=== PATIENT | female | born 1955 | race American Indian/Alaskan Native ===

== ENCOUNTER 2017-04-30 23:53 | Emergency (ER) | payer SELFPAY ==
[2017-05-01] MEDS ORDERED: TYLENOL PO ONE (01:00)
[2017-05-01] MEDS ORDERED: CATAPRES PO ONE (01:01)
[2017-05-01] MEDS ORDERED: TYLENOL ONE (01:01)
[2017-05-01] MEDS ORDERED: MOTRIN ONE (01:01)
[2017-05-01] MEDS ORDERED: CATAPRES ONE (01:01)
[2017-05-01] MEDS ORDERED: MOTRIN PO ONE (01:01)
[2017-05-01 04:43] VITALS: BP 118/76
[2017-05-01] MEDS ORDERED: BACTRIM DS PO ONE (06:32)
--- NOTE | 2017-05-01 06:38 | Emergency Department Report ---
HPI - General Chief Complaint: Sore Throat Time Seen by Provider: 05/01/17 06:02 - HPI HPI: This is a 61-year-old female presents to the emergency department with complaint of a sore throat that started last week, then went away, and he came back over the past 2 days. She admits to some chills and was found to have a low-grade fever here today. She also presented with elevated blood pressure but admits that she has been out of her lisinopril and hydrochlorothiazide for the past month or so as she does not have a primary care doctor, insurance. She tried some Goody's powder for her symptoms without any relief. She has a past medical history of asthma, hypertension. She denies current tobacco abuse. No recent travel or sick contacts at home. She is able to swallow liquids and solids but has some pain with doing so. ED Past Medical Hx - Past Medical History Previous Medical History?: Yes Hx Hypertension: Yes Hx Asthma: Yes - Surgical History Additional Surgical History: tubal ligation - Social History Smoking Status: Current Every Day Smoker - Medications Home Medications: Home Medications Medication Instructions Recorded Confirmed Last Taken Type Lisinopril/Hydrochlorothiazide 1 tab PO QDAY #30 tab 05/01/17 Unknown Rx [Zestoretic 20-25 mg] Sulfamethoxazole/Trimethoprim 1 each PO BID #14 tablet 05/01/17 Unknown Rx [Bactrim DS TAB] ED Review of Systems ROS: Stated complaint: SORE THROAT Other details as noted in HPI Comment: All other systems reviewed and negative Constitutional: chills, fever Eyes: denies: eye pain, eye discharge, vision change ENT: throat pain. denies: ear pain Respiratory: denies: cough, shortness of breath, wheezing Cardiovascular: denies: chest pain, palpitations Gastrointestinal: denies: abdominal pain, nausea, diarrhea Genitourinary: denies: urgency, dysuria, discharge Musculoskeletal: denies: back pain, joint swelling, arthralgia Skin: denies: rash, lesions Neurological: denies: headache, weakness, paresthesias Physical Exam - Physical Exam Vital Signs: Vital Signs 05/01/17 05/01/17 05/01/17 00:17 00:43 01:03 Temperature 100.8 F H 100.8 F H Pulse Rate 88 76 Respiratory 18 20 20 Rate Blood Pressure 180/114 180/114 Blood Pressure [Left] O2 Sat by Pulse 95 98 Oximetry 05/01/17 05/01/17 05/01/17 01:04 02:37 04:42 Temperature 99.2 F 98 F Pulse Rate 76 76 98 H Respiratory 20 20 18 Rate Blood Pressure 180/114 Blood Pressure 128/88 118/76 [Left] O2 Sat by Pulse 98 96 Oximetry Physical Exam: GENERAL: The patient is well-developed well-nourished. HENT: Normocephalic. Atraumatic. Patient has moist mucous membranes. No drooling or trismus. Patient has dentures in place. There is some elongation and inflammation of the uvula and there is some mild bilateral tonsillar hypertrophy with a exudate on the right tonsil. No significant erythema. EYES: Extraocular motions are intact. Pupils equal reactive to light bilaterally. NECK: Supple. There is a right-sided tender but mobile submandibular lymph node. CHEST/LUNGS: Clear to auscultation. There is no respiratory distress noted. HEART/CARDIOVASCULAR: Regular. There is no tachycardia. There is no gallop rub or murmur. ABDOMEN: Abdomen is soft, nontender. Patient has normal bowel sounds. There is no abdominal distention. SKIN: Skin is warm and dry. NEURO: The patient is awake, alert, and oriented. The patient is cooperative. The patient has no focal neurologic deficits. The patient has normal speech. MUSCULOSKELETAL: There is no tenderness or deformity. There is no limitation range of motion. There is no evidence of acute injury. ED Course Vital Signs 05/01/17 05/01/17 05/01/17 00:17 00:43 01:03 Temperature 100.8 F H 100.8 F H Pulse Rate 88 76 Respiratory 18 20 20 Rate Blood Pressure 180/114 180/114 Blood Pressure [Left] O2 Sat by Pulse 95 98 Oximetry 05/01/17 05/01/17 05/01/17 01:04 02:37 04:42 Temperature 99.2 F 98 F Pulse Rate 76 76 98 H Respiratory 20 20 18 Rate Blood Pressure 180/114 Blood Pressure 128/88 118/76 [Left] O2 Sat by Pulse 98 96 Oximetry ED Medical Decision Making - Medical Decision Making 61-year-old female presents with some sore throat and hypertension. She does have a fever here. Strep test was negative but culture has been sent. On physical exam she appears to have some signs of uvulitis and hasn't exited on the right tonsil with a submandibular lymph node. She'll be treated with some Bactrim for suspected uvulitis and/or pharyngitis/tonsillitis. Fever resolved with Tylenol and ibuprofen. Blood pressure came down to a much more reasonable level with a low dose of Catapres and the patient has been prescribed her blood pressure medications. She appears safe for discharge home. She'll be given multiple referrals for primary care. She will return to the ER with any worsening of her symptoms or any acute distress. - Differential Diagnosis strep pharyngitis, tonsillitis, uvulitis, tooth abscess, viral syndrome Critical Care Time: No Critical care attestation.: If time is entered above; I have spent that time in minutes in the direct care of this critically ill patient, excluding procedure time. ED Disposition Clinical Impression: Uvulitis Hypertension Qualifiers: Hypertension type: essential hypertension Qualified Code(s): I10 - Essential ( primary) hypertension Acute tonsillitis Qualifiers: Pharyngitis/tonsillitis etiology: unspecified etiology Qualified Code(s): J03.90 - Acute tonsillitis, unspecified Disposition: DC- TO HOME OR SELFCARE Is pt being admited?: No Condition: Stable Instructions: Pharyngitis (ED), Uvulitis (ED), Hypertension (ED) Additional Instructions: Please follow up with a primary care physician in the next few days. Return to the emergency Department with any worsening of your symptoms or any acute distress. Take the antibiotics as prescribed. Take her blood pressure medication. Try and stay away from foods that are high in salt and caffeinated products to help with her blood pressure. Try and quit smoking. Keep a blood pressure log. He can take Tylenol every 4 hours and ibuprofen every 6 hours, using weight- based dosing, as needed for fever or discomfort. Prescriptions: Lisinopril/Hydrochlorothiazide [Zestoretic 20-25 mg] 1 tab PO QDAY #30 tab Sulfamethoxazole/Trimethoprim [Bactrim DS TAB] 1 each PO BID #14 tablet Referrals: MAR LOPEZ MD [Primary Care Provider] - 3-5 Days FLORY BOO MD [Staff Physician] - 3-5 Days [facility] [Outside] - 3-5 Days [facility] [Outside] - 3-5 Days [facility] [Outside] - 3-5 Days Time of Disposition: 07:40
== END 2017-05-01 08:22 | disposition home or self-care (01) ==
LOC: ED 23:53
DX: J03.90 Acute tonsillitis, unspecified (principal); I10 Essential (primary) hypertension; K12.2 Cellulitis and abscess of mouth; J45.909 Unspecified asthma, uncomplicated; F17.200 Nicotine dependence, unspecified, uncomplicated
CPT/HCPCS: 87116; 87430; 99282